=== PATIENT | female | born 1945 | race Caucasian/White ===

== ENCOUNTER → 2023-06-19 10:18 | Outpatient (REF) | payer MEDICARE, OTHER, SELFPAY | LOC: DHCBC MAIN 10:18 | PROVIDERS: ATTENDING PHYSICIAN Internal Medicine; FAMILY PHYSICIAN Nurse Practitioner Family | DX: I34.2 Nonrheumatic mitral (valve) stenosis (principal) | CPT/HCPCS: 93306 ==

== ENCOUNTER → 2023-08-08 11:01 | Outpatient (REF) | payer MEDICARE, OTHER, SELFPAY ==
[2023-08-08 12:19] LABS: % Basophils 0.7 % (0-2); % Eosinophils 1.2 % (0-6); % Immature Granulocytes 0.2 % (0-0.5); % Lymphocytes 20.4 % (20.5-51.1); % Neutrophils 68.5 % (42.2-75.2); Absolute Eosinophils 0.1 10^3/uL (0-0.7); Absolute Lymphocytes 1.2 10^3/uL (1.2-3.4); Absolute Monocytes 0.5 10^3/uL (0.1-0.6); Hematocrit 35.7 % (37.0-47.0); Hemoglobin 11.3 g/dL (12.0-16.0); Mean Corp Hgb Conc. 31.7 g/dL (33.0-37.0); Mean Corpuscular Volume 82.3 fL (81.0-99.0); Mean Platelet Volume 11.3 fL (7.4-10.4); Nucleated Red Blood Cells % 0 %; Platelet Count 152 10^3/uL (130-400); Red Blood Cell Count 4.34 10^6/uL (4.20-5.40); Red Cell Dist. Width 15.4 % (11.5-14.5); White Blood Cell Count 5.8 10^3/uL (4.8-10.8)
[2023-08-08 12:33] LABS: Iron 55 ug/dl (37-170)
[2023-08-08 12:42] LABS: Percent Saturation 13 % (20-50); Total Iron Binding Capacity 418 ug/dl (265-497)
[2023-08-08 13:09] LABS: Ferritin 12.7 ng/ml (11.1-264.0)
== END ==
LOC: OLABPV 11:01
PROVIDERS: ATTENDING PHYSICIAN Internal Medicine Hematology & Oncology
DX: D50.9 Iron deficiency anemia, unspecified (principal)
CPT/HCPCS: 36415; 82728; 83540; 83550; 85025

== ENCOUNTER → 2023-08-24 08:45 | Outpatient (REF) | payer MEDICARE, OTHER, SELFPAY | LOC: RAD 08:45 | PROVIDERS: ATTENDING PHYSICIAN Internal Medicine Transplant Hepatology; FAMILY PHYSICIAN Nurse Practitioner Family | DX: K70.31 Alcoholic cirrhosis of liver with ascites (principal) | CPT/HCPCS: 76700; 93975 ==

== ENCOUNTER → 2023-09-14 09:00 | Outpatient (REF) | payer MEDICARE, OTHER, SELFPAY ==
[2023-09-14 14:07] LABS: % Basophils 0.8 % (0-2); % Eosinophils 1.6 % (0-6); % Immature Granulocytes 0.3 % (0-0.5); % Lymphocytes 22.7 % (20.5-51.1); % Monocytes 8.8 % (1.7-9.3); % Neutrophils 65.8 % (42.2-75.2); Absolute Basophils 0.1 10^3/uL (0-0.2); Absolute Eosinophils 0.1 10^3/uL (0-0.7); Absolute Lymphocytes 1.4 10^3/uL (1.2-3.4); Absolute Monocytes 0.6 10^3/uL (0.1-0.6); Absolute Neutrophils 4.1 10^3/uL (1.4-6.5); Hematocrit 37.6 % (37.0-47.0); Mean Corp Hgb Conc. 31.9 g/dL (33.0-37.0); Mean Corpuscular Hgb 25.8 pg (27.0-31.0); Mean Corpuscular Volume 80.7 fL (81.0-99.0); Mean Platelet Volume 11.7 fL (7.4-10.4); Nucleated Red Blood Cells % 0 %; Platelet Count 174 10^3/uL (130-400); Red Blood Cell Count 4.66 10^6/uL (4.20-5.40); Red Cell Dist. Width 15.9 % (11.5-14.5); White Blood Cell Count 6.3 10^3/uL (4.8-10.8)
[2023-09-14 14:11] LABS: INR 1.27; PT 15.7 Sec (11.4-14.6)
[2023-09-14 15:17] LABS: ALT (SGPT) 13 U/L (0-35); AST (SGOT) 20 U/L (14-36); Albumin 4.4 g/dl (3.5-5.0); Alkaline Phosphatase 74 U/L (38-126); Blood Urea Nitrogen 28 mg/dl (7-17); Calcium 10.7 mg/dl (8.4-10.2); Carbon Dioxide 25 mmol/L (22-30); Chloride 104 mmol/L (98-107); GGTP 37 U/L (12-43); Glucose 107 mg/dl (70-99); Sodium 138 mmol/L (135-145); Total Bilirubin 0.8 mg/dl (0.2-1.3); Total Protein 8.5 g/dl (6.3-8.2); eGFR 57.31
[2023-09-14 15:39] LABS: AFP Male/Tumor Marker 1.38 ng/ml
== END ==
LOC: OLABPV 09:00
PROVIDERS: ATTENDING PHYSICIAN Internal Medicine Transplant Hepatology
DX: K70.31 Alcoholic cirrhosis of liver with ascites (principal)
CPT/HCPCS: 36415; 80053; 82105; 82977; 85025; 85610

== ENCOUNTER → 2023-09-26 10:26 | Outpatient (REF) | payer MEDICARE, OTHER, SELFPAY | LOC: RAD 10:26 | PROVIDERS: ATTENDING PHYSICIAN Nurse Practitioner Family | DX: M81.0 Age-related osteoporosis without current pathological fracture (principal) | CPT/HCPCS: 77080 ==

== ENCOUNTER → 2023-10-10 13:55 | Outpatient (REF) | payer MEDICARE, OTHER, SELFPAY ==
[2023-10-10 15:57] LABS: ALT (SGPT) 12 U/L (0-35); AST (SGOT) 22 U/L (14-36); Albumin 4.4 g/dl (3.5-5.0); Alkaline Phosphatase 74 U/L (38-126); Blood Urea Nitrogen 30 mg/dl (7-17); Calcium 10.7 mg/dl (8.4-10.2); Carbon Dioxide 20 mmol/L (22-30); Chloride 104 mmol/L (98-107); Glucose 120 mg/dl (70-99); HDL Cholesterol 40 mg/dl; LDL Cholesterol, Calculated 44 mg/dl; Potassium 4.7 mmol/L (3.5-5.1); Sodium 137 mmol/L (135-145); Total Bilirubin 0.8 mg/dl (0.2-1.3); Total Cholesterol 98 mg/dl (50-199); Triglyceride 74 mg/dl (10-149); Very Low Density Lipoprotein 14 mg/dl (0-30); eGFR 46.05
[2023-10-11 08:41] LABS: Glycohemoglobin (HgbA1c) 5.9 % (4.0-5.6)
== END ==
LOC: OLABPV 13:55
PROVIDERS: ATTENDING PHYSICIAN Nurse Practitioner Family
DX: R73.01 Impaired fasting glucose (principal); E78.5 Hyperlipidemia, unspecified
CPT/HCPCS: 36415; 80053; 80061; 83036

== ENCOUNTER → 2024-03-21 10:19 | Outpatient (REF) | payer MEDICARE, OTHER, SELFPAY ==
[2024-03-21 12:52] LABS: ALT (SGPT) 15 U/L (0-35); AST (SGOT) 22 U/L (14-36); Albumin 4.3 g/dl (3.5-5.0); Alkaline Phosphatase 73 U/L (38-126); Blood Urea Nitrogen 32 mg/dl (7-17); Calcium 10.7 mg/dl (8.4-10.2); Carbon Dioxide 26 mmol/L (22-30); Chloride 103 mmol/L (98-107); Glucose 128 mg/dl (70-99); Potassium 4.6 mmol/L (3.5-5.1); Sodium 138 mmol/L (135-145); Total Bilirubin 0.9 mg/dl (0.2-1.3); Total Protein 7.8 g/dl (6.3-8.2); eGFR 51.11
[2024-03-21 14:20] LABS: Glycohemoglobin (HgbA1c) 5.6 % (4.0-5.6)
== END ==
LOC: OLABPV 10:19
PROVIDERS: ATTENDING PHYSICIAN Nurse Practitioner Family
DX: I10 Essential (primary) hypertension (principal); E78.5 Hyperlipidemia, unspecified; D64.9 Anemia, unspecified; E21.3 Hyperparathyroidism, unspecified; I48.0 Paroxysmal atrial fibrillation; Z95.0 Presence of cardiac pacemaker; R73.01 Impaired fasting glucose
CPT/HCPCS: 36415; 80053; 83036

== ENCOUNTER → 2024-03-26 09:49 | Outpatient (REF) | payer MEDICARE, OTHER, SELFPAY | LOC: RAD 09:49 | PROVIDERS: ATTENDING PHYSICIAN Surgery Vascular Surgery; FAMILY PHYSICIAN Nurse Practitioner Family | DX: I65.23 Occlusion and stenosis of bilateral carotid arteries (principal) | CPT/HCPCS: 93880 ==

== ENCOUNTER → 2024-04-22 09:16 | Outpatient (REF) | payer MEDICARE, OTHER, SELFPAY ==
[2024-04-22 11:39] LABS: % Basophils 0.6 % (0-2); % Eosinophils 1.3 % (0-6); % Immature Granulocytes 0.2 % (0-0.5); % Lymphocytes 24.6 % (20.5-51.1); % Monocytes 9.3 % (1.7-9.3); Absolute Eosinophils 0.1 10^3/uL (0-0.7); Absolute Lymphocytes 1.2 10^3/uL (1.2-3.4); Absolute Monocytes 0.4 10^3/uL (0.1-0.6); Hematocrit 39.7 % (37.0-47.0); Hemoglobin 12.8 g/dL (12.0-16.0); Mean Corp Hgb Conc. 32.2 g/dL (33.0-37.0); Mean Corpuscular Hgb 28.7 pg (27.0-31.0); Nucleated Red Blood Cells % 0 %; Platelet Count 146 10^3/uL (130-400); Red Blood Cell Count 4.46 10^6/uL (4.20-5.40); Red Cell Dist. Width 15.6 % (11.5-14.5); White Blood Cell Count 4.8 10^3/uL (4.8-10.8)
[2024-04-22 11:41] LABS: INR 1.18; PT 15.3 Sec (11.4-14.6)
[2024-04-22 12:03] LABS: ALT (SGPT) 13 U/L (0-35); AST (SGOT) 21 U/L (14-36); Albumin 4.4 g/dl (3.5-5.0); Alkaline Phosphatase 71 U/L (38-126); Blood Urea Nitrogen 24 mg/dl (7-17); Calcium 10.6 mg/dl (8.4-10.2); Carbon Dioxide 26 mmol/L (22-30); Chloride 102 mmol/L (98-107); GGTP 33 U/L (12-43); Glucose 108 mg/dl (70-99); Potassium 4.9 mmol/L (3.5-5.1); Sodium 139 mmol/L (135-145); Total Bilirubin 1.1 mg/dl (0.2-1.3); Total Protein 7.9 g/dl (6.3-8.2); eGFR 51.11
[2024-04-22 12:37] LABS: AFP Male/Tumor Marker 2.56 ng/ml
== END ==
LOC: OLABPV 09:16
PROVIDERS: ATTENDING PHYSICIAN Internal Medicine Transplant Hepatology
DX: K74.3 Primary biliary cirrhosis (principal); R93.2 Abnormal findings on diagnostic imaging of liver and biliary tract
CPT/HCPCS: 36415; 80053; 82105; 82977; 85025; 85610

== ENCOUNTER → 2024-04-24 11:00 | Outpatient (REF) | payer MEDICARE, OTHER, SELFPAY | LOC: RAD 11:00 | PROVIDERS: ATTENDING PHYSICIAN Surgery Vascular Surgery; FAMILY PHYSICIAN Nurse Practitioner Family | DX: I65.23 Occlusion and stenosis of bilateral carotid arteries (principal) | CPT/HCPCS: 70496; 70498; Q9967 ==

== ENCOUNTER 2024-05-28 07:55 | Inpatient (IN) | payer MEDICARE, OTHER, SELFPAY ==
[2024-05-15 09:34] VITALS: BMI 28.7
[2024-05-15 10:25] LABS: % Basophils 0.9 % (0-2); % Eosinophils 1.2 % (0-6); % Immature Granulocytes 0.2 % (0-0.5); % Lymphocytes 15.2 % (20.5-51.1); % Monocytes 8.3 % (1.7-9.3); % Neutrophils 74.2 % (42.2-75.2); Absolute Basophils 0.1 10^3/uL (0-0.2); Absolute Eosinophils 0.1 10^3/uL (0-0.7); Absolute Lymphocytes 0.9 10^3/uL (1.2-3.4); Absolute Monocytes 0.5 10^3/uL (0.1-0.6); Absolute Neutrophils 4.2 10^3/uL (1.4-6.5); Hematocrit 38.6 % (37.0-47.0); Hemoglobin 12.5 g/dL (12.0-16.0); Mean Corp Hgb Conc. 32.4 g/dL (33.0-37.0); Mean Corpuscular Hgb 28.1 pg (27.0-31.0); Mean Corpuscular Volume 86.7 fL (81.0-99.0); Mean Platelet Volume 10.3 fL (7.4-10.4); Nucleated Red Blood Cells % 0 %; Platelet Count 147 10^3/uL (130-400); Red Blood Cell Count 4.45 10^6/uL (4.20-5.40); Red Cell Dist. Width 14.6 % (11.5-14.5); White Blood Cell Count 5.6 10^3/uL (4.8-10.8)
[2024-05-15 10:35] LABS: PT 15.7 Sec (11.4-14.6)
[2024-05-15 10:36] LABS: APTT 32.1 Sec (23.4-35.0)
[2024-05-15 11:06] LABS: Blood Urea Nitrogen 28 mg/dl (7-17); Calcium 10.2 mg/dl (8.4-10.2); Carbon Dioxide 27 mmol/L (22-30); Chloride 102 mmol/L (98-107); Estimated Creatinine Clearance 41 ml/min; Glucose 98 mg/dl (70-99); Potassium 4.6 mmol/L (3.5-5.1); Sodium 141 mmol/L (135-145)
[2024-05-28] VITALS (9 sets, daily range): BP systolic 104–146; BP diastolic 53–80; BMI 28.7
[2024-05-28] MEDS: BACTROBAN NASAL 1 GRAM NASAL (08:51)
[2024-05-28] MEDS: NSS 500 IV (08:51)
[2024-05-28] MEDS: PERIDEX 0.12% ORAL RINSE 15 ML PO (08:51)
--- NOTE | 2024-05-28 10:19 | W.SUR.PREOP ---
Pre-Operative Surgical Note
-
I have examined this patient prior to the performance of the scheduled procedure.
The patient's condition is unchanged from the time of the current History and
Physical and the patient is able to undergo the scheduled procedure.
--- NOTE | 2024-05-28 12:32 | W.SUR.POST ---
Surgical Immediate Post Op
Note
Pre Op Diagnosis: Carotid stenosis
Post Op Diagnosis: Same
Procedure Performed: Right carotid endarterectomy with bovine pericardial patch angioplasty and EEG monitoring
Primary Surgeon: Sincere
Assist: Ernst VALDES
Anesthesia: General
Estimated Blood Loss: 35 cc
Fluids: See anesthesia flowsheet
Drains/Shunts: None
Specimens/Cultures: Carotid plaque
Doppler/Duplex/Angio (Y/N): Y
Complications: None
Operative Findings: Woke from anesthesia moving all extremities
--- NOTE | 2024-05-28 13:13 | OR.RPT ---
Operative Report
Operative Report
PROCEDURE DATE: 05/28/2024
Preoperative diagnosis: Critical right carotid artery stenosis, asymptomatic.
Postoperative diagnosis: Same
Procedure: Right carotid endarterectomy with bovine pericardial patch angioplasty and intraoperative EEG/SSEP monitoring.
Surgeon: Sincere
Desk Director: YUNI Dukes, required for all aspects of procedure including assistance with traction/countertraction, following of suture line, assistance with closure.
Complications: None
Anesthesia: General
Indications for procedure:
Critical right carotid artery stenosis, asymptomatic. Risk/benefits/alternatives of revascularization fully discussed. Patient understood all wished to proceed.
Description of procedure:
Patient was identified brought to the operating room placed on the table in supine position. After the adequate administration of anesthesia and perioperative antibiotics she was prepped and draped in the standard surgical fashion. A standard
preoperative timeout was undertaken and everybody was in agreement the plan. A standard longitudinal incision was made in the right neck that was carried through the skin subcutaneous tissue. Using the electrocautery dissection was carried through
the platysma muscle layer and then alongside the anterior medial border of the sternocleidomastoid muscle. Then using a combination of sharp dissection with the Metzenbaum scissors and electrocautery I dissected along the anterior medial border of
the internal jugular vein. There was a small common facial vein branch or other branch that was ligated between silk ties and divided. I then deepened my retraction. The common carotid artery was identified and carefully dissected away from the
surrounding structures take great care to avoid any injury to the structures. A vessel loop was passed around it which was double looped, but not yet tightened. Note the vagus nerve was visualized in its usual course posterior lateral to the
common carotid artery, and was protected from harm's way. I then continued my dissection up the common carotid artery to the bulb staying only on the anterior surface of the carotid artery. I noted now that the external carotid artery and superior
thyroid branches were directly anterior, and the internal carotid artery was rotated fully posteriorly. This made more distal dissection challenging as I difficulty dissecting the internal carotid artery from under the external carotid artery as it
actually coursed (the external carotid artery coursed) just anterior and then laterally somewhat over the internal carotid artery. Therefore this made this very challenging to get the endpoint here. I therefore then had to extend my incision
slightly. There was a larger crossing vein branch which may have been the actual common facial vein branch. This was ligated between silk ties and then divided. Then I carefully teased out the tissues medial and deep to the jugular vein here
overlying the internal carotid artery to allow better exposure of the distal internal carotid artery. I also carefully circumferentially dissected the external carotid artery and superior thyroid branches so as to be able to reflect them somewhat
medially after passing Vesseloops around them so as to get better exposure for the internal carotid artery. As such, I was finally then able to carry the dissection up to the internal carotid artery and then to the distal internal carotid artery.
I identified where it was soft and carefully circumferentially dissected the internal carotid artery with minimal mobilization and passed a vessel loop around it. Note the hypoglossal nerve was not visualized and felt to be cephalad. The patient
was given an appropriate dose of heparin 7500 units. After 3 minutes of heparin circulation time and confirmation of optimization of the blood pressure with my anesthesiology colleagues, I clamped the distal internal carotid artery where it was
soft. There was no immediate EEG or SSEP changes. After 1 minute of test clamp time there was no changes noted. Therefore at this point, the vessel loops on the external carotid artery and superior thyroid branches were tightened and the common
carotid artery was clamped where it was soft proximally. An arteriotomy was made on the common carotid artery with an 11 blade and extended using a [place] scissor. I extended the arteriotomy onto the mid to distal internal carotid artery. There
was a mixed plaque with soft components and was friable in the proximal internal carotid artery. Resulted in a severe stenosis. A Wrens was then used to endarterectomized the plaque. An endarterectomy plane was created, and the plaque was then
endarterectomized. Distally I feathered the plaque out to a nice clean endpoint in the distal internal carotid artery. Next I endarterectomized the intima back to normal intima in the common carotid artery, and the intima was cut flush there. I
then grasped the plaque and everted plaque out of the origin of the external carotid artery. The plaque was then sent off for specimen. The origin of the external carotid artery was carefully visualized and any fine debris were removed with fine
forceps. This proved to be tedious as the plaque somewhat had fractured at the origin of the external carotid artery. However I meticulously removed any fine debris and confirmed the origin of the external carotid artery to be patent and free of
any loose debris. Proximal and distal endpoints were then carefully inspected. Any fine debris was removed with fine forceps, and the intima was noted to be nicely adherent proximally distally. Next any fine debris were removed throughout the
endarterectomy bed with fine forceps. I then flushed heparinized saline. I was very satisfied. Then, I used a bovine pericardial patch to sew a patch angioplasty with a running 6-0 Prolene suture. Prior to completing and tying down my suture
line, I backbled sequentially each branch and reclamped each branch prior to unclamping the next branch. I then irrigated with heparinized saline. Then I completed and tied down my suture line. We then restored flow in the common carotid and
external carotid arteries. Finally, we released flow in the internal carotid artery. There was excellent pulsatile flow in all 3 vessels. There was an excellent Doppler signal in the internal carotid artery distal to the patch with a good normal
low resistance Doppler signal. There was a good Doppler signal in the external carotid artery as well. 6-0 Prolene [id number] sutures were placed along any bleeding points along the suture line. Protamine was given to reverse the heparin.
Hemostasis was completely achieved. We then irrigated and confirmed full hemostasis. I then closed in layers with 2-0 Vicryl layer to reapproximate the sternocleidomastoid muscle, followed by 3-0 Vicryl platysma muscle running layer, followed by 4
Monocryl subcuticular stitch. Dermabond was applied. The patient tolerated procedure well. She awoke moving all extremities to command with tongue in the midline.
[2024-05-28 14:34] LABS: Hematocrit 35.5 % (37.0-47.0); Hemoglobin 11.5 g/dL (12.0-16.0); Mean Corp Hgb Conc. 32.4 g/dL (33.0-37.0); Mean Corpuscular Hgb 28.5 pg (27.0-31.0); Mean Corpuscular Volume 87.9 fL (81.0-99.0); Mean Platelet Volume 10.5 fL (7.4-10.4); Platelet Count 147 10^3/uL (130-400); Red Blood Cell Count 4.04 10^6/uL (4.20-5.40); Red Cell Dist. Width 14.3 % (11.5-14.5); White Blood Cell Count 7.8 10^3/uL (4.8-10.8)
[2024-05-28 14:42] LABS: APTT 30.3 Sec (23.4-35.0); INR 1.34; PT 17.1 Sec (11.4-14.6)
[2024-05-28 14:47] LABS: Blood Urea Nitrogen 26 mg/dl (7-17); Calcium 9.3 mg/dl (8.4-10.2); Carbon Dioxide 23 mmol/L (22-30); Chloride 106 mmol/L (98-107); Estimated Creatinine Clearance 45 ml/min; Glucose 141 mg/dl (70-99); Potassium 4.4 mmol/L (3.5-5.1); Sodium 137 mmol/L (135-145); eGFR 56.95
[2024-05-28] MEDS: NSS 1000 IV (14:47)
--- NOTE | 2024-05-28 15:16 | PTCARENOTE ---
pt aaox3. states 2/10 throbbing pain in left neck jaw. no neuro deficits. right neck inc glued baltazar. ivf running as ordered. a line in place.
--- NOTE | 2024-05-28 15:22 | CON.INTV ---
Consultation
Consultation Request
Date/Time Consultation Requested: 05/28/2024-3 PM
Date/Time Consultation Performed: 05/28/2024- 3 PM
Requesting Provider: Vascular surgery
Performing Provider: Dr. Alas
Reason for Consultation: Postop critical care management
Medical History
-
Chief Complaint: Carotid stenosis
History of Present Illness:
87-year-old former smoking female with history of hypertension, hyperlipidemia, alcohol abuse, cirrhosis, osteoporosis, atrial fibrillation and heart block found to have bilateral carotid artery stenosis and underwent right carotid
endarterectomy-direct care supervisor consulted for postoperative critical care management 05/28/2024. Patient is seen postoperatively and she denies any chest pain, shortness of breath, chest congestion, productive cough, abdominal pain, leg swelling, focal
weakness dysarthria or dysphagia.
Past Medical History
Past Medical History: None (Hypertension. Hyperlipidemia. CVA. Atrial fibrillation. Complete heart block/pacemaker 2019. PAD. Left CEA. Alcohol abuse. Cirrhosis. Seizures. Osteoporosis. Tonsillectomy. Watchman 2020.)
Social History
Tobacco: Former Smoker (02-[id number] quit 1975)
Alcohol: Chronic Alcoholic (Quit 2 years ago)
Drug: None
Living: With Family
Occupational Exposures: No known asbestos exposure
Environmental Exposures: No known tuberculosis exposure
Family History
Family History: Adopted
Allergies / Home Medications
Allergies
Allergy/AdvReac Type Severity Reaction Status Date / Time
bee venom protein (honey bee) Allergy Shortness Verified 05/28/24 08:42
of Breath
Home Medications
�Medication �Instructions �Recorded �Confirmed �Last Taken �Type
furosemide 20 mg tablet 20 mg PO DAILY Fluid 10/13/19 05/28/24 05/27/24 08:00 History
retention/Liver
metoprolol succinate 25 mg 25 mg PO DAILY Blood pressure 10/13/19 05/28/24 05/28/24 06:30 History
tablet,extended release 24 hr
spironolactone 25 mg tablet 25 mg PO Q48H Fluid retention/Liver 10/13/19 05/28/24 05/26/24 08:00 History
atorvastatin 40 mg tablet 40 mg PO HS High cholesterol 01/06/20 05/28/24 05/27/24 22:30 History
cholecalciferol (vitamin D3) 25 1,000 units PO HS Supplement 01/06/20 05/28/24 05/27/24 22:30 History
mcg (1,000 unit) tablet
aspirin 81 mg tablet,delayed 81 mg PO DAILY Blood clot 03/29/20 05/28/24 05/28/24 06:30 History
release prevention/tx
alendronate 70 mg tablet (Fosamax) 70 mg PO LARSON 05/13/24 05/28/24 05/25/24 08:00 History
ursodiol 300 mg capsule 300 mg PO BID 05/13/24 05/28/24 05/27/24 10:30 History
Review of Systems
-
Unable to Obtain full review of systems at this time due to: Other
Vitals / Labs / Diagnostic Testing
Vital Signs
Temp Pulse Resp BP Pulse Ox
98.1 F 67 12 121/53 94
05/28/24 15:16 05/28/24 14:40 05/28/24 14:17 05/28/24 14:15 05/28/24 15:15
Lab Data
05/28/24 14:11
05/28/24 14:11
Laboratory Results
05/28/24
14:11
PT 17.1 H
INR 1.34
APTT 30.3
Diagnostic Testing:
Physical Exam
-
Exam:
Well-nourished and well-developed in no apparent distress
HEENT-atraumatic, normocephalic
Neck-supple, no JVD, no bruit
Heart-regular rate and rhythm-no murmurs, rubs or gallops
Chest-clear to auscultation, no wheezes, crackles
Back-no tenderness
Abdomen-soft, nontender, nondistended, no hepatosplenomegaly
Extremities-no cyanosis, clubbing, edema and good peripheral pulses
Integument-intact, no rashes, lesions or ecchymosis
Neurology-alert and oriented, nonfocal motor and sensory exam
Assessment
-
87-year-old former smoking female with history of hypertension, hyperlipidemia, alcohol abuse, cirrhosis, osteoporosis, atrial fibrillation and heart block found to have bilateral carotid artery stenosis and underwent right carotid
endarterectomy-direct care supervisor consulted for postoperative critical care management 05/28/2024.
Carotid artery stenosis
Status post right CEA-Dr. Post-05/28/2024
Anemia-normocytic
Hyperglycemia
Conditions present prior to admission:
Hypertension.
Hyperlipidemia.
CVA.
Atrial fibrillation.
Complete heart block/pacemaker 2019.
PAD.
Left CEA-October 2019
Alcohol abuse.
Cirrhosis.
Seizures.
Osteoporosis.
Tonsillectomy. Watchman 2020.
Plan
Patient will monitor closely in surgical intensive care unit
Supplemental oxygen will be provided as needed
Incentive spirometry
Vascular surgery following closely
Vascular and neuro checks per protocol
Monitor blood pressure closely
Maintain adequate cerebral perfusion pressures
Phenylephrine as needed
Nicardipine if needed
Pressors or antihypertensives will be initiated as needed
The patient reports not drinking for quite a while but now only drinks 1 glass of wine nightly-reports no withdrawal in the past
Follow for signs and symptoms of withdrawal anyway
Monitor hemoglobin
Aspiration precautions
Early nutrition
Early mobilization
DVT prophylaxis-on subcu heparin
Reviewed with daughter at the bedside
Critical care statement: A total of 55 minutes of critical care time was provided for this patient today. This includes management of unstable vital signs, evaluation of the patient at bedside, reviewing the patient's pertinent medical records
including radiographs, microbiology, laboratory evaluations, and discussion with primary team and critical care nursing.
Diagnostic data:
Chest x-ray 11/24/[id number] cardiac conduction device with leads noted
Chest x-ray 05/15/2024-NAD
Echocardiogram 06/19/2023-EF 55-60%, Mild mitral regurgitation
Data Reviewed
-
EKG: Report reviewed by me
Radiology: Report reviewed by me
Medical Tests (Nuc Med, Echo etc): Report reviewed by me
Labs: Labs reviewed by me
Old Records: Reviewed
Critical Care Time (in minutes): 55
[2024-05-28] MEDS: TYLENOL 650 MG PO ×2 (16:30→20:30)
--- NOTE | 2024-05-28 19:55 | PTCARENOTE ---
Assumed care of pt at 1900. Pt is A/O x4, pleasant and cooperative with care. Reports mild throbbing pain to right neck surgical site, due for next dose of Tylenol at 2030. Discussed pain med options with patient based on what level of pain she is
having and she verbalized understanding. Right radial arterial line in place, BP within ordered parameters without meds. See nursing shift assessment flowsheet for full physical assessment details. Call flower and personal items within reach.
[2024-05-28] MEDS: VITAMIN D3 (cholecalciferol) 25 MCG PO (20:30)
[2024-05-28] MEDS: LIPITOR 40 MG PO (20:30)
[2024-05-28] MEDS: ACTIGALL 300 MG PO (20:30)
[2024-05-29] VITALS (7 sets, daily range): BP systolic 114–161; BP diastolic 50–72; BMI 29.4
[2024-05-29] MEDS: TYLENOL 650 MG PO ×2 (00:32→11:13)
[2024-05-29] MEDS: NSS 1000 IV (00:32)
--- NOTE | 2024-05-29 00:43 | PTCARENOTE ---
Midnight assessment unchanged. Medicated for pain with Tylenol x2 this shift, see EMAR. Maintaining systolic BP within ordered parameters without meds. Neurological checks unchanged, WNL, ongoing Q1 hour. V paced on monitor.
[2024-05-29 04:28] LABS: Hematocrit 32.3 % (37.0-47.0); Hemoglobin 10.5 g/dL (12.0-16.0); Mean Corp Hgb Conc. 32.5 g/dL (33.0-37.0); Mean Corpuscular Volume 86.1 fL (81.0-99.0); Mean Platelet Volume 10.2 fL (7.4-10.4); Platelet Count 132 10^3/uL (130-400); Red Blood Cell Count 3.75 10^6/uL (4.20-5.40); Red Cell Dist. Width 14.6 % (11.5-14.5); White Blood Cell Count 5.7 10^3/uL (4.8-10.8)
[2024-05-29 04:41] LABS: INR 1.37; PT 17.4 Sec (11.4-14.6)
[2024-05-29 04:42] LABS: APTT 31.2 Sec (23.4-35.0)
[2024-05-29 04:55] LABS: Blood Urea Nitrogen 25 mg/dl (7-17); Calcium 9.1 mg/dl (8.4-10.2); Carbon Dioxide 19 mmol/L (22-30); Chloride 110 mmol/L (98-107); Estimated Creatinine Clearance 50 ml/min; Glucose 129 mg/dl (70-99); Potassium 4.8 mmol/L (3.5-5.1); Sodium 137 mmol/L (135-145); eGFR > 60.00
--- NOTE | 2024-05-29 05:13 | PTCARENOTE ---
Assessment unchanged. Pain controlled. V paced on monitor, HR 60. SpO2 97% on RA. Able to void in bedpan. Sandy care done, linens changed.
--- NOTE | 2024-05-29 07:30 | W.PN.INTV ---
Today's Communication / Plan
Recommendations
deline
Wean oxygen
Increase activity
Transfer out of ICU-call pulmonary if respiratory issues arise
Assessment
-
87-year-old former smoking female with history of hypertension, hyperlipidemia, alcohol abuse, cirrhosis, osteoporosis, atrial fibrillation and heart block found to have bilateral carotid artery stenosis and underwent right carotid
endarterectomy-school cafeteria cook head consulted for postoperative critical care management 05/28/2024.
Carotid artery stenosis
Status post right CEA-Dr. Post-05/28/2024
Anemia-normocytic
Hyperglycemia
Conditions present prior to admission:
Hypertension.
Hyperlipidemia.
CVA.
Atrial fibrillation.
Complete heart block/pacemaker 2019.
PAD.
Left CEA-October 2019
Alcohol abuse.
Cirrhosis.
Seizures.
Osteoporosis.
Tonsillectomy. Watchman 2020.
Plan
Hemodynamically and neurovascularly intact
Wean supplemental oxygen
Incentive spirometry encourage
Aspiration precautions
Monitor hemoglobin
Transfuse if needed
Monitor blood sugars
Insulin supplementation if needed
Neuro and vascular checks per protocol also continue
Vascular surgery closely
Daily drinker-no signs of withdrawal
Alcohol withdrawal precautions
DVT prophylaxis recommended
Nutrition
Increase activity/physical therapy
Patient can be transferred out of ICU-call pulmonary if respiratory issues arise
Reviewed the patient's pertinent medical records including radiographs, microbiology, laboratory evaluations, and discussion with primary team, consultants, pharmacy, nutrition, physical therapy, case management, charge nurse, critical care
nursing, and respiratory therapy.
Diagnostic data:
Chest x-ray 11/24/[id number] cardiac conduction device with leads noted
Chest x-ray 05/15/2024-NAD
Echocardiogram 06/19/2023-EF 55-60%, Mild mitral regurgitation
Subjective Dataa
Subjective Data
Date of Service:
Date of Service: May 29, 2024
Chief Complaint: Educational Technology Coordinator Follow Up and Pulmonary Follow Up
Subjective:
Feels well, no complaints of shortness of breath, chest pain, productive cough or abdominal pain
Review of Systems
General: Other (Per HPI)
Objective Data
Data Reviewed
Vital Signs / I&O / Oxygen:
Vital Signs
Temp Pulse Resp BP Pulse Ox
97.4 F 61 25 149/72 95
05/29/24 04:07 05/29/24 06:00 05/29/24 06:00 05/29/24 04:47 05/29/24 06:00
Intake and Output
05/28/24 05/29/24 05/30/24
06:59 06:59 06:59
Intake Total 1889
Balance 1889
SaO2 95
Physical Exam
General: Respiratory Distress (n) and Comfortable
HEENT: Normocephalic, Anicteric and Moist Mucous Membranes
Cardiovascular: Regular Rhythm
Respiratory: Wheeze (n), Crackles (n), Non-Labored Respirations and Accessory Resp Muscle Use (n)
GI: Soft, Non Distended and Non Tender
Neurology: Awake, Alert and No Motor Deficits
Skin: Warm, Good Color, Cyanosis (n) and Jaundice (n)
Labs/Micro/Reports
Lab Data
05/29/24 04:13
05/29/24 04:13
Laboratory Results
05/28/24 05/29/24
14:11 04:13
PT 17.1 H 17.4 H
INR 1.34 1.37
APTT 30.3 31.2
[2024-05-29] MEDS: LASIX 20 MG PO (08:15)
[2024-05-29] MEDS: ACTIGALL 300 MG PO (08:16)
[2024-05-29] MEDS: ASPIR LOW (ENTERIC COATED) 81 MG PO (08:16)
[2024-05-29] MEDS: TOPROL XL 25 MG PO (08:16)
[2024-05-29] MEDS: HEPARIN 5000 UNITS SC (08:16)
--- NOTE | 2024-05-29 08:18 | W.PN.VS ---
Today's Communication / Plan
-
Seen and assessed with Dr. Post
Assessment/Plan
-
POD 1 right CEA
Plan:
-DC A-line
-DC IV fluids
-Increase diet
-P.o. meds
-Out of bed/ambulate
-Likely DC later today
Subjective Data
-
Date of Service: May 29, 2024
Patient seen at bedside this a.m. with Dr. Post. Patient offers no complaints at this time. No events overnight
Objective Data
-
Vital Signs
Temp Pulse Resp BP Pulse Ox
97.4 F 61 25 149/72 95
05/29/24 04:07 05/29/24 06:00 05/29/24 06:00 05/29/24 04:47 05/29/24 06:00
Intake and Output
05/28/24 05/29/24 05/30/24
06:59 06:59 06:59
Intake Total 1889 / 1890
Balance 189 / 1890
Intake:
Oral fluids 490 / 490
IV fluids (Total) 1400 / 1400
Normosol 200 / 200
Nss 1,000 ml @ 80 mls/hr IV . 1200 / 1200
[id number] [facility] Rx#:[id number]
Other:
Number of approximated MODERATE 1
amounts of urine
Lab Results
05/29/24 04:13
05/29/24 04:13
Calcium 9.1 mg/dl (8.4-10.2) 05/29/24 04:13
Phosphorus 3.0 mg/dl (2.5-4.5) 05/29/24 04:13
Magnesium 2.0 mg/dl (1.6-2.3) 05/29/24 04:13
Physical Exam
-
AAOx3
No tachypnea on room air
No tachycardia
Abdomen soft
Neck site clean, dry, intact, soft, flat
Moves all extremities equally
Tongue midline
[2024-05-29] MEDS: ALDACTONE 25 MG PO (08:31)
--- NOTE | 2024-05-29 09:34 | PTCARENOTE ---
Received pt awake and alert.Assisted OOB to bathroom and chair.AM care completed.Gait is steady.Denies pain.Speech is appropriate.100% V paced.Right A line discontinued as ordered.IVF capped as ordered.Lungs CTA.POX 96% on RA.No BM.Voiding yellow
urine.Right neck incision intact with surgical adhesive.No drainage noted.Plan of care discussed.
--- NOTE | 2024-05-29 11:28 | PTCARENOTE ---
Pt ambulated around ICU.Gait is steady.c/o slight incisional pain.Medicated with Tylenol as requested.
--- NOTE | 2024-05-29 12:05 | CM ---
Addendum entered by Tammy Pan 05/29/24 13:17:
Plan: Discharge to home today; no needs. Daughter will transport home
Original Note:
Met with patient at the bedside; initial assessment completed
IMM benefit explained; form signed @ 1200
Pharmacy verified: [facility] @ [address] [place] [address]
Patient reported she lives alone in a one bedroom cottage @ [facility]; bath has walk-in shower with grab bar
PLOF: patient reported she is independent with ambulation and ADLs; gets her meals from the dining room; does not drive; daughters live nearby in [place]
No history of SNF utilization; home health w/ [facility] in 2020
Daughter will transport home
Plan: Discharge to home; no needs anticipated
--- NOTE | 2024-05-29 13:06 | W.DS.TRANS ---
DC Summary - Case Management Director
-
Discharge Instructions:
Sleep Apnea Risk Low
Discharge Diagnosis/Procedures Right carotid endarterectomy with bovine
pericardial patch angioplasty and intraoperative
EEG/SSEP monitoring
Diet As tolerated
Activity No strenuous activity
Driving Restrictions Not until seen by your Dr
Bathing Restrictions OK to Shower
Instructions:
Stand-Alone Forms: DC Instr - Vascular OR
Changes to Home Medications: No
Discharge Medications:
DC Medications w/original date entered in [facility]
furosemide 20 mg tablet 20 mg PO DAILY Fluid retention/Liver 10/13/19
metoprolol succinate 25 mg tablet,extended release 24 hr 25 mg PO DAILY Blood pressure 10/13/19
spironolactone 25 mg tablet 25 mg PO Q48H Fluid retention/Liver 10/13/19
atorvastatin 40 mg tablet 40 mg PO HS High cholesterol 01/06/20
cholecalciferol (vitamin D3) 25 mcg (1,000 unit) tablet 1,000 units PO HS Supplement 01/06/20
aspirin 81 mg tablet,delayed release 81 mg PO DAILY Blood clot prevention/tx 03/29/20
alendronate 70 mg tablet (Fosamax) 70 mg PO LARSON osteoporosis 05/13/24
ursodiol 300 mg capsule 300 mg PO BID 05/13/24
Home Medication Changes
Pending Results: No
--- NOTE | 2024-05-29 13:07 | PTCARENOTE ---
Pt ambulated around ICU as requested.Gait is steady.She feels better and states she feels steady on her feet.
--- NOTE | 2024-05-29 13:07 | W.DCSUMMARY ---
Discharge Summary
Discharge Data
Date of Admission: 05/28/24
Date of Discharge: 05/29/24
-
Pending Results: No
Hospital Course
Attending: Sincere
Consultants: Pulmonary medicine
Allergies: Bees
Procedure with date: 05/28/2024: Right carotid endarterectomy with bovine pericardial patch angioplasty and EEG monitoring
History of present illness: The patient is an 79-year-old female with multiple medical conditions including: carotid stenosis, hypertension, hypercholesterolemia, stroke, A-fib, permanent pacemaker, PAD, alcohol abuse, cirrhosis, seizures, watchman,
former smoker. Patient presented on 05/28/2024 for scheduled procedure with Dr. Post. Patient presented at baseline health with no reports of recent illness or trauma.
Hospital Course: Briefly, the patient underwent scheduled CEA without complications, and recovered in PACU. Following recovery phase one and two patient was transferred to intensive care unit per protocol for continued hemodynamic monitoring.
Television Anchor consulted to aid in medical management from a critical care perspective. POD #1 (05/29/2024) Patient neurologically intact, face symmetrical, and tolerating PO diet. Surgical neck site clean, dry, and intact with suture line well
approximated and soft. No evidence of hematoma. Arterial line and IV fluids discontinued. Patient able to ambulate without difficulty or incident. Patient stable for discharge to home.
Prescriptions and follow up appointment are included in the DC summary land inspector note. All instructions were given to the patient in both written and verbal form and the patient expressed understanding.
Discharge Plan
-
Patient Disposition: Home (Routine Discharge)
Discharge Diagnosis/Procedures: Right carotid endarterectomy with bovine pericardial patch angioplasty and intraoperative EEG/SSEP monitoring
Condition: Good
Diet: As tolerated
Activity: No strenuous activity
Driving Restrictions: Not until seen by your Dr
Bathing Restrictions: OK to Shower
Activity Restrictions/Additional Instructions:
If you experience severe constant headache, weakness to an arm or leg, change in vision, trouble speaking or any stroke-like symptom, call 911 immediately
If you experience swelling, increased bruising, drainage from neck site, or fever, please call the office
Stand Alone Forms: DC Instr - Vascular OR
Referrals:
Berta Zuniga CRNP [Primary Care Provider] -
Francine Davis CRNP [Specified Professional Personl] - 06/11/24 10:30 am
Prescriptions:
Continued
spironolactone 25 MG tablet
25 mg PO Q48H
furosemide 20 MG tablet
20 mg PO DAILY
metoprolol succinate 25 MG tablet extended release 24 hr
25 mg PO DAILY
cholecalciferol (vitamin D3) 1,000 UNITS tablet
1,000 units PO HS
atorvastatin 40 MG tablet
40 mg PO HS
aspirin 81 MG tablet,delayed release (DR/EC)
81 mg PO DAILY
alendronate [Fosamax] 70 mg Tablet
70 mg PO LARSON
ursodiol 300 mg capsule
300 mg PO BID
Discharge Orders:
Discharge Patient (As Directed); Ordered 05/29/24
Ordered By: Miriam Rodriguez
Discharge Date and Time
Print Language: KINYARWANDA
--- NOTE | 2024-05-29 15:33 | PTCARENOTE ---
Pt assessed.No change in assessment noted.
== END 2024-05-29 16:15 | disposition home or self-care (01) | DRG 39 ==
LOC: ICU 07:55
PROVIDERS: Nurse Practitioner Acute Care; ADMITTING PHYSICIAN Surgery Vascular Surgery; CONSULT PHYSICIAN Internal Medicine Critical Care Medicine; PRIMARYCARE PHYSICIAN Nurse Practitioner Family
PROC: 03UH0KZ Supplement Right Common Carotid Artery with Nonautologous Tissue Substitute, Open Approach (ICD-10-PCS; 2024-05-28)
PROC: 03CH0ZZ Extirpation of Matter from Right Common Carotid Artery, Open Approach (ICD-10-PCS; 2024-05-28)
DX: I65.21 Occlusion and stenosis of right carotid artery (principal); I10 Essential (primary) hypertension; E78.00 Pure hypercholesterolemia, unspecified; R56.9 Unspecified convulsions; Z87.891 Personal history of nicotine dependence; F10.10 Alcohol abuse, uncomplicated; K74.60 Unspecified cirrhosis of liver; D64.9 Anemia, unspecified; R73.9 Hyperglycemia, unspecified; Z95.0 Presence of cardiac pacemaker; M81.0 Age-related osteoporosis without current pathological fracture; Z79.82 Long term (current) use of aspirin; Z79.83 Long term (current) use of bisphosphonates; Z79.899 Other long term (current) drug therapy; I48.91 Unspecified atrial fibrillation
CPT/HCPCS: 88304; 88311; 35301; 36415; 71046; 80048; 83735; 84100; 85025; 85027; 85610; 85730; 86850; 86900; 86901; 95938; 95941; 95955

== ENCOUNTER → 2024-07-11 11:19 | Outpatient (REF) | payer MEDICARE, OTHER, SELFPAY | LOC: RAD 11:19 | PROVIDERS: ATTENDING PHYSICIAN Registered Nurse; FAMILY PHYSICIAN Nurse Practitioner Family | DX: I65.23 Occlusion and stenosis of bilateral carotid arteries (principal) | CPT/HCPCS: 93880 ==

== ENCOUNTER → 2024-08-05 10:18 | Outpatient (REF) | payer MEDICARE, OTHER, SELFPAY ==
[2024-08-05 11:09] LABS: % Basophils 0.9 % (0-2); % Eosinophils 1.6 % (0-6); % Immature Granulocytes 0.5 % (0-0.5); % Lymphocytes 28.9 % (20.5-51.1); % Monocytes 8.8 % (1.7-9.3); % Neutrophils 59.3 % (42.2-75.2); Absolute Eosinophils 0.1 10^3/uL (0-0.7); Absolute Lymphocytes 1.3 10^3/uL (1.2-3.4); Absolute Monocytes 0.4 10^3/uL (0.1-0.6); Absolute Neutrophils 2.6 10^3/uL (1.4-6.5); Hematocrit 38.9 % (37.0-47.0); Hemoglobin 12.4 g/dL (12.0-16.0); Mean Corp Hgb Conc. 31.9 g/dL (33.0-37.0); Mean Corpuscular Hgb 28.1 pg (27.0-31.0); Mean Corpuscular Volume 88.2 fL (81.0-99.0); Mean Platelet Volume 10.8 fL (7.4-10.4); Nucleated Red Blood Cells % 0 %; Platelet Count 173 10^3/uL (130-400); Red Blood Cell Count 4.41 10^6/uL (4.20-5.40); Red Cell Dist. Width 14.1 % (11.5-14.5); White Blood Cell Count 4.4 10^3/uL (4.8-10.8)
[2024-08-05 11:20] LABS: Iron 74 ug/dl (37-170)
[2024-08-05 12:14] LABS: Percent Saturation 18 % (20-50); Total Iron Binding Capacity 397 ug/dl (265-497)
[2024-08-05 12:15] LABS: Ferritin 27.8 ng/ml (11.1-264.0)
== END ==
LOC: OLABPV 10:18
PROVIDERS: ATTENDING PHYSICIAN Internal Medicine Hematology & Oncology
DX: D50.9 Iron deficiency anemia, unspecified (principal)
CPT/HCPCS: 36415; 82728; 83540; 83550; 85025

== ENCOUNTER → 2025-02-18 11:34 | Outpatient (REF) | payer MEDICARE, OTHER, SELFPAY | LOC: RAD 11:34 | PROVIDERS: ATTENDING PHYSICIAN Surgery Vascular Surgery; FAMILY PHYSICIAN Nurse Practitioner Family | DX: I65.23 Occlusion and stenosis of bilateral carotid arteries (principal) | CPT/HCPCS: 93880 ==